=== PATIENT | male | born 1985 | race Caucasian/White ===

== ENCOUNTER 2019-07-14 11:31 | Emergency (ER) | payer OTHER ==
[2019-07-14 11:36] VITALS: TEMP 98.3
--- NOTE | 2019-07-14 12:54 | ED ---
Extremity Problem HPI - General Chief complaint: Extremity Problem,Nontraumatic Stated complaint: Leg pain Time Seen by Provider: 07/14/19 11:37 Source: patient, RN notes reviewed Mode of arrival: ambulatory Limitations: no limitations - History of Present Illness Initial comments: This a 34-year-old male presents emergency Department with chief complaint of right leg pain, swelling or redness. Patient states that pain started 56 days ago he does have a history of cellulitis. No fevers chills no history of PE or DVT. Patient states he is able to family with no difficulty. Patient was seen at [facility] and sent here for evaluation of possible DVT. - Related Data Previous Rx's Medication Instructions Recorded Cephalexin [Keflex] 500 mg PO Q6HR #40 cap 07/14/19 Sulfamethox-Tmp 800-160Mg [Bactrim 1 each PO Q12HR #20 tab 07/14/19 Ds] Allergies Allergy/AdvReac Type Severity Reaction Status Date / Time No Known Allergies Allergy Verified 07/14/19 11:36 Review of Systems ROS Statement: Those systems with pertinent positive or pertinent negative responses have been documented in the HPI. ROS Other: All systems not noted in ROS Statement are negative. Past Medical History Past Medical History: No Reported History History of Any Multi-Drug Resistant Organisms: None Reported Past Surgical History: No Surgical Hx Reported Past Psychological History: ADD/ADHD, Anxiety Smoking Status: Former smoker Past Alcohol Use History: None Reported Past Drug Use History: None Reported General Exam Limitations: no limitations General appearance: alert, in no apparent distress Head exam: Present: atraumatic, normocephalic, normal inspection Eye exam: Present: normal appearance, PERRL, EOMI. Absent: scleral icterus, conjunctival injection, periorbital swelling ENT exam: Present: normal exam, normal oropharynx, mucous membranes moist Neck exam: Present: normal inspection, full ROM. Absent: tenderness, meningismus, lymphadenopathy Respiratory exam: Present: normal lung sounds bilaterally. Absent: respiratory distress, wheezes, rales, rhonchi, stridor Cardiovascular Exam: Present: regular rate, normal rhythm, normal heart sounds. Absent: systolic murmur, diastolic murmur, rubs, gallop, clicks Extremities exam: Present: other (Right leg there is erythema to the mid calf, mild tenderness neurovascular intact equal pedal pulses.) Skin exam: Present: warm, dry, intact Course Vital Signs 07/14/19 11:33 Temperature 98.3 F Pulse Rate 91 Respiratory 16 Rate Blood Pressure 143/91 O2 Sat by Pulse 97 Oximetry Medical Decision Making - Medical Decision Making Ultrasound is negative for acute DVT. As a large lymph node to his right inguinal region this may related to his right leg cellulitis he'll follow-up for repeat ultrasound after treatment. A she'll be discharged on antibiotics return parameters were discussed. Disposition Clinical Impression: Cellulitis of right lower extremity Disposition: HOME SELF-CARE Condition: Stable Instructions (If sedation given, give patient instructions): Cellulitis (ED) Additional Instructions: Please return to the Emergency Department if symptoms worsen or any other concerns. Prescriptions: Sulfamethox-Tmp 800-160Mg [Bactrim Ds] 1 each PO Q12HR #20 tab Cephalexin [Keflex] 500 mg PO Q6HR #40 cap Is patient prescribed a controlled substance at d/c from ED?: No Referrals: None,Stated [Primary Care Provider] - 1-2 days Time of Disposition: 13:12
--- NOTE | 2019-07-14 12:55 | US ---
EXAMINATION TYPE: US venous doppler duplex LE RT DATE OF EXAM: 07/14/2019 12:43 PM COMPARISON: NONE CLINICAL HISTORY: pain. Right lower leg swelling and redness x 1 week SIDE PERFORMED: Right TECHNIQUE: The lower extremity deep venous system is examined utilizing real time linear array sonog seng with graded compression, doppler sonography and color-flow sonography. VESSELS IMAGED: External Iliac Vein (EIV) Common Femoral Vein Deep Femoral Vein Greater Saphenous Vein * Femoral Vein Popliteal Vein Small Saphenous Vein * Proximal Calf Veins (* superficial vessels) Right Leg: Appears negative for DVT Right groin: 5.3 x 2.8 x 6.5cm lymph node seen IMPRESSION: 1. Right lower extremity ultrasound negative for deep venous thrombosis. 2. Large right inguinal lymph node
[2019-07-14 13:25] VITALS: BP 146/98; PULSE 96; RESP 20
== END 2019-07-14 13:23 | disposition home or self-care (01) ==
LOC: EC 11:31
DX: L03.115 Cellulitis of right lower limb (principal); Z87.891 Personal history of nicotine dependence
CPT/HCPCS: 99283